=== PATIENT | male | born 2000 | race African-American/Black ===

== ENCOUNTER 2021-08-18 13:55 | Emergency (ER) | payer OTHER ==
[~2021-08-18] VITALS: Ht 175.3 cm; Wt 65.8 kg
[2021-08-18] MEDS ORDERED: MOTRIN800 MG PO (15:58)
== END 2021-08-18 16:32 | disposition home or self-care (01) ==
LOC: ER 14:12
DX: M25.562 Pain in left knee (principal); W50.0XXA Accidental hit or strike by another person, initial encounter; Y93.61 Activity, american tackle football; Y92.89 Other specified places as the place of occurrence of the external cause
CPT/HCPCS: 99282

== ENCOUNTER 2021-11-04 06:29 | Emergency (ER) | payer SELFPAY ==
[~2021-11-04] VITALS: Ht 175.3 cm; Wt 65.8 kg
[~2021-11-04 06:29] MED LIST: MOTRIN800 MG PO
== END 2021-11-04 07:52 | disposition home or self-care (01) ==
LOC: ER 06:38
DX: H60.11 Cellulitis of right external ear (principal); S00.451A Superficial foreign body of right ear, initial encounter
CPT/HCPCS: 99282